=== PATIENT | female | born 1990 | race Caucasian/White ===

== ENCOUNTER 2024-06-23 11:54 | Emergency (ER) | payer MEDICARE, OTHER, SELFPAY ==
[2024-06-23 12:04] VITALS: BP 143/102
[2024-06-23 12:34] LABS: % Basophils 1.1 % (0-2); % Eosinophils 2.8 % (0-6); % Immature Granulocytes 0.2 % (0-0.5); % Lymphocytes 31.5 % (20.5-51.1); % Monocytes 8.3 % (1.7-9.3); % Neutrophils 56.1 % (42.2-75.2); Absolute Basophils 0.1 10^3/uL (0-0.2); Absolute Eosinophils 0.2 10^3/uL (0-0.7); Absolute Lymphocytes 2.7 10^3/uL (1.2-3.4); Absolute Monocytes 0.7 10^3/uL (0.1-0.6); Absolute Neutrophils 4.8 10^3/uL (1.4-6.5); Hemoglobin 15.7 g/dL (12.0-16.0); Mean Corp Hgb Conc. 34.1 g/dL (33.0-37.0); Mean Corpuscular Hgb 29.3 pg (27.0-31.0); Mean Platelet Volume 9.8 fL (7.4-10.4); Nucleated Red Blood Cells % 0 %; Platelet Count 283 10^3/uL (130-400); Red Blood Cell Count 5.35 10^6/uL (4.20-5.40); Red Cell Dist. Width 14.3 % (11.5-14.5); White Blood Cell Count 8.5 10^3/uL (4.8-10.8)
[2024-06-23 12:47] LABS: ALT (SGPT) 31 U/L (0-35); AST (SGOT) 28 U/L (14-36); Albumin 4.6 g/dl (3.5-5.0); Alkaline Phosphatase 74 U/L (38-126); Blood Urea Nitrogen 6 mg/dl (7-17); Calcium 9.7 mg/dl (8.4-10.2); Carbon Dioxide 25 mmol/L (22-30); Chloride 104 mmol/L (98-107); Glucose 93 mg/dl (70-99); Potassium 4.1 mmol/L (3.5-5.1); Sodium 136 mmol/L (135-145); Total Bilirubin 0.4 mg/dl (0.2-1.3); Total Protein 7.5 g/dl (6.3-8.2); eGFR > 60.00
--- NOTE | 2024-06-23 14:05 | ED.GENMED ---
History of Present Illness
General
Chief Complaint: Blood Pressure Problem
Time Seen by Provider: 06/23/24 13:36
History of Present Illness
History of Present Illness:
33-year-old female with history of anxiety and bipolar disorder presents to the emergency department for evaluation of dizziness, intermittent blurred vision, left-sided weakness, and general malaise for the past 7 days. Symptoms seem to be
worsening. She also reports intermittent headache however headache does improve with [id number] medications. She is able to ambulate without instability. Noted that her blood pressure has been elevated over the past several days despite
compliance with her home meds. Does note that she was started on ciprofloxacin for a dental infection just over 1 week ago
Past History
Past History
ED Past Medical History: Psychiatric (Bipolar, anxiety, Depression, PTSD) and Other (Suicide attempt 05/01/2021, Psoriasis, Headache, raynauds disease, UTi. Ovarian cyst, )
ED Past Surgical History: Gynecological (D & E, ) and Other ([place] teeth)
Social History
Tobacco: Smoker
Alcohol: Occasional
Drug: None
Personal:
Living: with family (son)
Employment: Employed ([employer])
Family History
Family History: Diabetes
Review of Systems
Review of Systems
Allergies reviewed?: Yes
All Other Systems: ROS reviewed and negative except as documented in HPI and ROS
Phy Exam
Physical Exam
Physical Exam:
GEN: Well appearing, NAD, WDWN
HEENT: Oral mucosa moist, no scleral icterus, no nasal congestion, pupils equal round and reactive to light with no visible afferrent pupillary defect
Cardiac: Regular rate
Lung: No respiratory distress, no tachypnea
MSK: No gross deformity or injuries
Skin: Good color, no pallor or jaundice, no rashes
Neuro: AO x3; CN II-XII grossly intact. BUE strength 5/5 in all abbb, sensation intact and symmetric. BLE strength 5/5 in all babb, sensation intact and symmetric
Psych: Calm, cooperative
Course
Orders/Labs/Results
Orders:
Orders
06/23/24 12:09
Electrocardiogram (*1) Urgent
Reason for Study: Vertigo / Dizzy
EKG- Treatment ONCE
06/23/24 12:28
CMP [Comprehensive Metabolic Panel] Urgent
Complete Blood Count/With Diff Urgent
HCG, Serum Qualitative Screen Urgent
Comment: ADD ON
06/23/24 14:04
CT Head W/o Iv Contrast Urgent
Comment:
Reason For Exam: dizziness/blurry vision
06/23/24 14:18
Add On- LAB Urgent
Tests Added?: hcg qual
Abnormal Lab Results
06/23/24
12:28
Absolute Monos (auto) 0.7 H 10^3/uL
(0.1-0.6)
BUN 6 L mg/dl
(7-17)
06/23/24 12:28
06/23/24 12:28
Vital Signs
Initial and Last Documented VS:
Initial Vital Signs
Temp Pulse Resp BP Pulse Ox
98.0 F 100 16 143/102 100
06/23/24 12:04 06/23/24 12:04 06/23/24 12:04 06/23/24 12:04 06/23/24 12:04
Last Documented Vital Signs
Temp Pulse Resp BP Pulse Ox
98.0 F 91 15 119/85 98
06/23/24 12:04 06/23/24 16:19 06/23/24 16:19 06/23/24 16:19 06/23/24 16:25
MDM/Problems Addressed
MDM/Problems Addressed:
33-year-old female presents with a litany of symptoms, has no acute neurologic deficits on exam. Her blood pressure is not significantly elevated in the emergency department to explain a cause. I do suspect her current use of ciprofloxacin may be
provoking some of her symptoms however she clarified for me at the end of the visit that she did not start taking this prior to the onset of symptoms. Recommend outpatient primary care follow-up to discuss any need for further imaging such as brain
MRI. Urinalysis not likely be beneficial given that she is actively on antibiotics.
*Critical Care Note
Total Time (30-74mins, 75-104mins- exclusive of procedures): Not Applicable
ED Attending Note
-
Portions of this chart may have been created with voice recognition software.� Occasional wrong word or��sound alike� substitutions may have occurred due to the inherent limitations of voice recognition software.
Discharge Plan
Departure
Patient Disposition: Home (Routine Discharge)
Date of Disposition: 06/23/24
Time of Disposition: 16:04
Patient with high blood pressure during this ER visit?: No
Discharge Problem:
Dizziness
Instructions: Dizziness in adults - ED discharge instructions
Prescriptions:
No Action
citalopram 10 MG tablet
30 mg PO DAILY
hydroxyzine pamoate [Vistaril] 50 MG capsule
50 mg PO PRN PRN (Reason: anxiety )
Patient Comments:
patient states she takes daily and sometimes more then once a day
cannabidiol [Epidiolex] 1 UNIT solution
1 unit PO PRN PRN (Reason: anxiety)
promethazine-codeine 5 ML syrup
5 ml PO Q4HPRN PRN (Reason: Cough) Qty: 120 0RF
promethazine-codeine 5 ML syrup
5 ml PO Q4HPRN PRN (Reason: cough) Qty: 120 0RF
promethazine-codeine 5 ML syrup
5 ml PO Q4HPRN PRN (Reason: Cough) Qty: 120 0RF
Referrals:
Mia Luong-MD Nay [Family Provider] -
Stand Alone Forms: Return to Work
Interventions
Interventions:
*Risk Screen - Suicide Last Done: 06/23/24 12:04
*General Assessment Last Done: 06/23/24 12:04
*Neglect/Abuse Screening Last Done: 06/23/24 16:27
ED- Fall Risk Assessment Last Done: 06/23/24 16:27
*ED COVID-19 Vaccine History Last Done: 06/23/24 12:04
*Nursing Disposition Last Done: 06/23/24 16:27
ED- Cardiac Assessment Last Done: 06/23/24 16:25
ED- Neurological Assessment Last Done: 06/23/24 16:25
ED- Pulmonary Assessment Last Done: 06/23/24 16:25
Discharge Date and Time
Discharge Date/Time: 06/23/24 16:28
Print Language: ITALIAN
[2024-06-23 14:23] VITALS: BP 126/86
[2024-06-23 14:34] LABS: HCG, Serum Qualitative Screen Negative
[2024-06-23 16:18] VITALS: BP 119/85
[2024-06-23 16:19] VITALS: BP 119/85
== END 2024-06-23 16:28 | disposition home or self-care (01) ==
LOC: EMR 11:54
PROVIDERS: Student in an Organized Health Care Education/Training Program; EMERGENCY PHYSICIAN Emergency Medicine; FAMILY PHYSICIAN Internal Medicine
DX: R42 Dizziness and giddiness (principal); F31.9 Bipolar disorder, unspecified; F17.200 Nicotine dependence, unspecified, uncomplicated; I73.00 Raynaud's syndrome without gangrene; Z83.3 Family history of diabetes mellitus; Z87.440 Personal history of urinary (tract) infections; Z91.51 Personal history of suicidal behavior
CPT/HCPCS: 99284; 70450; 80053; 84703; 85025; 93005

== ENCOUNTER → 2024-07-20 18:31 | Outpatient (REF) | payer MEDICARE, OTHER, SELFPAY | LOC: MRI 18:31 | PROVIDERS: FAMILY PHYSICIAN Registered Nurse | DX: H46.9 Unspecified optic neuritis (principal) | CPT/HCPCS: 70543; 70553; A9575 ==

== ENCOUNTER 2025-05-28 16:09 | Emergency (ER) | payer MEDICARE, OTHER, SELFPAY ==
[2025-05-28] VITALS (8 sets, daily range): BP systolic 105–168; BP diastolic 79–96; PULSE 79–93
[2025-05-28] MEDS: NSS 500 IV (17:35)
[2025-05-28] MEDS: TYLENOL 650 MG PO (17:36)
--- NOTE | 2025-05-28 17:48 | ED.GENMED ---
History of Present Illness
General
Chief Complaint: Fainting/Passed Out
Source: patient
Exam Limitations: none
Time Seen by Provider: 05/28/25 17:06
Nursing documentation reviewed up to this point in time: agreed with
History of Present Illness
History of Present Illness:
Patient with history of anxiety and depression, who recently completed inpatient psychiatric treatment, presents to ED after multiple syncopal episodes over the past 3 days. Each event lasting seconds, was preceded by sensation of dizziness,
diaphoresis, palpitations, and nausea sensation. Patient is reporting left-sided head pain from the fall. Denies loss of sensation or weakness. Denies difficulty with speech. Denies recent change in medications or diet. Patient does state that
over the past 1 year, she has been dealing with severe emotional stress. Patient smokes daily and drinks alcohol socially. Of note, there is family history of heart disease. However, there is no family history of blood clots.
Past History
Past History
ED Past Medical History: Psychiatric (Bipolar, anxiety, Depression, PTSD) and Other (Suicide attempt 05/01/2021, Psoriasis, Headache, raynauds disease, UTi. Ovarian cyst, )
ED Past Surgical History: Gynecological (D & E, ) and Other ([place] teeth)
Social History
Tobacco: Smoker
Alcohol: Occasional
Drug: None
Personal:
Living: with family (son)
Employment: Employed ([employer])
Family History
Family History: Diabetes
Review of Systems
Review of Systems
Allergies reviewed?: Yes
All Other Systems: ROS reviewed and negative except as documented in HPI and ROS
Constitutional: Reports no symptoms
EENT: Reports no symptoms
Respiratory: Reports no symptoms
Cardiac: Reports diaphoresis, palpitations and syncope
ABD/GI: Reports nausea; Denies vomiting
Musculoskeletal: Reports no symptoms; Denies neck pain or back pain
Skin: Reports no symptoms
Neurological: Reports headache
Phy Exam
Physical Exam
Physical Exam:
Physical Exam
General: no apparent distress, not acutely ill. afebrile
Head: nc/at. eomi
Neck: supple. no meningeal signs. normal range of motion
Heart: s1/s2 regular rate and rhythm. no murmur
Lungs: no acute respiratory distress. clear bilaterally
Abdomen: normal bowel sounds. not tender.
Neuro: alert and oriented x 3. no focal neurological deficits. normal speech.
Skin: no rash
Psychiatric: well kept. interactive and cooperative
Extremities: no edema. no calf tenderness.
Course
Orders/Labs/Results
Orders:
Orders
05/28/25 16:09
EKG [Electrocardiogram (*1)] Urgent
Reason for Study: Chest Pain
05/28/25 16:10
EKG- Treatment ONCE
05/28/25 17:18
CT Head W/o Iv Contrast Urgent
Comment:
Reason For Exam: syncope w trauma
Orthostatic VS- Treatment ONCE
05/28/25 17:19
0.9% Sodium Chloride 500 ml [Nss] 500 ml IV BOLUS
Acetaminophen [Tylenol] 650 mg PO NOW STA
05/28/25 17:29
Complete Blood Count/With Diff Urgent
Comprehensive Metabolic Panel Urgent
D-Dimer Urgent
Magnesium Urgent
TSH Urgent
Troponin I Urgent
Urinalysis Reflex To Culture Urgent
Date Specimen was Collected: 05/28/25
Time Specimen was Collected: 17:24
Abnormal Lab Results
05/28/25
17:29
RDW 15.5 H %
(11.5-14.5)
Absolute Monos (auto) 0.7 H 10^3/uL
(0.1-0.6)
05/28/25 17:29
05/28/25 17:29
Vital Signs
Initial and Last Documented VS:
Initial Vital Signs
Temp Pulse Resp BP Pulse Ox
98.0 F 107 20 168/96 99
05/28/25 16:16 05/28/25 16:16 05/28/25 16:16 05/28/25 16:16 05/28/25 16:16
Last Documented Vital Signs
Temp Pulse Resp BP Pulse Ox
98.0 F 83 18 124/95 98
05/28/25 16:16 05/28/25 18:30 05/28/25 18:30 05/28/25 18:00 05/28/25 18:30
MDM/Problems Addressed
MDM/Problems Addressed:
Patient remains asymptomatic during extended course observation ED, along with an unremarkable workup, including D-dimer and CT head. Orthostatic vital signs noted, without significant changes nor symptoms. Patient's presenting symptoms does
appear to be vasovagal in nature, without any significant risk factors for early cardiac disease nor PE at this time. Patient's symptoms, also may be contributed by significantly increased stress level currently
*Pulse Oximetry
SaO2: 99
Oxygen Mode of Delivery: Room air
Patient hypoxic: no
*EKG
Interpreted by ED Provider?: Yes
EKG Intrepretation Date: 05/28/25
Heart Rate: 111
Rate: tachycardiac
Rhythm: sinus
[place]: normal axis
Interval: normal interval
*Critical Care Note
Total Time (30-74mins, 75-104mins- exclusive of procedures): Not Applicable
ED Attending Note
-
Portions of this chart may have been created with voice recognition software.� Occasional wrong word or��sound alike� substitutions may have occurred due to the inherent limitations of voice recognition software.
Discharge Plan
Departure
Patient Disposition: Home (Routine Discharge)
Date of Disposition: 05/28/25
Time of Disposition: 22:05
Patient with high blood pressure during this ER visit?: Yes
Discharge Problem:
Vasovagal response, Headache
Instructions: Syncope (fainting) (DC), Headache in adults - ED (DC)
Prescriptions:
No Action
citalopram 10 MG tablet
30 mg PO DAILY
hydroxyzine pamoate [Vistaril] 50 MG capsule
50 mg PO PRN PRN (Reason: anxiety )
Patient Comments:
patient states she takes daily and sometimes more then once a day
cannabidiol [Epidiolex] 1 UNIT solution
1 unit PO PRN PRN (Reason: anxiety)
promethazine-codeine 5 ML syrup
5 ml PO Q4HPRN PRN (Reason: Cough) Qty: 120 0RF
promethazine-codeine 5 ML syrup
5 ml PO Q4HPRN PRN (Reason: cough) Qty: 120 0RF
promethazine-codeine 5 ML syrup
5 ml PO Q4HPRN PRN (Reason: Cough) Qty: 120 0RF
Referrals:
Donita Serrano CRNP [Family Provider, Family Practice]
Activity Restrictions/Additional Instructions:
As discussed, please follow-up with your primary care physician and clinical haematologist for further evaluation and treatment.
Interventions
Interventions:
*Risk Screen - Suicide Last Done: 05/28/25 17:31
*General Assessment Last Done: 05/28/25 16:16
*Neglect/Abuse Screening Last Done: 05/28/25 17:31
*ED COVID-19 Vaccine History Last Done: 05/28/25 17:31
*ED Influenza Vaccine History Last Done: 05/28/25 17:31
*Nursing Disposition Last Done: 05/28/25 22:24
ED- Cardiac Assessment Last Done: 05/28/25 17:31
ED- Neurological Assessment Last Done: 05/28/25 17:31
Discharge Date and Time
Discharge Date/Time: 05/28/25 22:25
Print Language: SLOV[place]
[2025-05-28 17:59] LABS: Hematocrit 45.1 % (37.0-47.0); Hemoglobin 15.1 g/dL (12.0-16.0); Mean Corp Hgb Conc. 33.5 g/dL (33.0-37.0); Mean Corpuscular Volume 86.4 fL (81.0-99.0); Nucleated Red Blood Cells % 0 %; Platelet Count 281 10^3/uL (130-400); Red Cell Dist. Width 15.5 % (11.5-14.5); Urine Character Clear (Clear)
[2025-05-28 18:11] LABS: ALT (SGPT) 27 U/L (0-35); AST (SGOT) 20 U/L (14-36); Albumin 4.7 g/dl (3.5-5.0); Alkaline Phosphatase 72 U/L (38-126); Blood Urea Nitrogen 8 mg/dl (7-17); Calcium 9.6 mg/dl (8.4-10.2); Carbon Dioxide 26 mmol/L (22-30); Chloride 104 mmol/L (98-107); Glucose 99 mg/dl (70-99); Magnesium 2.3 mg/dl (1.6-2.3); Potassium 4.1 mmol/L (3.5-5.1); Sodium 135 mmol/L (135-145); Total Protein 8.1 g/dl (6.3-8.2); eGFR > 60.00
[2025-05-28 18:14] LABS: D-Dimer 0.45 ug/mlFEU (0.00-0.50)
[2025-05-28 18:23] LABS: Troponin I < 0.012 ng/ml
[2025-05-28 18:42] LABS: TSH 0.54 uIU/ml (0.47-4.68)
== END 2025-05-28 22:25 | disposition home or self-care (01) ==
LOC: EMR 16:09
PROVIDERS: EMERGENCY PHYSICIAN Emergency Medicine; FAMILY PHYSICIAN Registered Nurse
DX: R55 Syncope and collapse (principal); R51.9 Headache, unspecified; L40.9 Psoriasis, unspecified; I73.00 Raynaud's syndrome without gangrene; F31.9 Bipolar disorder, unspecified; F43.10 Post-traumatic stress disorder, unspecified; F41.9 Anxiety disorder, unspecified; F17.200 Nicotine dependence, unspecified, uncomplicated; Z82.49 Family history of ischemic heart disease and other diseases of the circulatory system
CPT/HCPCS: 99284; 96360; 70450; 80053; 81003; 83735; 84443; 84484; 85025; 85379; 93005